=== PATIENT | female | born 1950 | race Caucasian/White ===

== ENCOUNTER 2016-12-04 05:41 | Inpatient (IN) | payer OTHER ==
[2016-12-04] MEDS ORDERED: NS 1,000 ML IV ONE (06:12)
[2016-12-04] MEDS ORDERED: ONDANSETRON 4 MG/2 ML VIAL IVP ONE (06:12)
[2016-12-04] MEDS ORDERED: HYDROmorphONE/DILAUDID 1 MG/ML SYR ONE (06:14)
[2016-12-04] MEDS ORDERED: HYDROmorphONE/DILAUDID 1 MG/ML SYR IVP ONE (06:17)
--- NOTE | 2016-12-04 06:17 | EDPHY ---
H & P Stated Complaint: abd pain Time Seen by Provider: 12/04/16 06:14 HPI/ROS: Chief Complaint: Abdominal pain HPI: 66-year-old woman began having abdominal pain last night after eating dinner. Has had a small episode of diarrhea and vomited once. Pain is in her mid abdomen, it is constant at a 7/10. It is not cramping. There is no aggravating or alleviating factors. She does not have a history of the same. Did have some chills. No urinary frequency urgency. No chest pain or shortness of breath. Has a history of a cholecystectomy and a tubal ligation in the past. ROS: 10 point Review of Systems is negative except as noted in the HPI. PMH: Hyperlipidemia, cholecystectomy, tubal ligation Medications: Statin allergies: No known drug allergies Social History: No smoking, occasional alcohol, no recreational drug use Family History: non-contributory Physical Exam: Gen: Awake, Alert, No Distress HEENT: Nose: no rhinorrhea Eyes: PERRLA, EOMI Mouth: Moist mucosa Neck: Supple, no JVD Chest: nontender, lungs clear to auscultation Heart: S1, S2 normal, no murmur Abd: Soft, bilateral lower abdominal tenderness with guarding Back: no CVA tenderness, no midline tenderness Ext: no edema, non-tender Skin: no rash Neuro: CN II-XII intact, Sensation grossly intact, Strength 5/5 in bilateral upper and lower extremities - Personal History Current Tetanus/Diphtheria Vaccine: Yes Current Tetanus Diphtheria and Acellular Pertussis (TDAP): Yes - Medical/Surgical History Hx Asthma: No Hx Chronic Respiratory Disease: No Hx Diabetes: No Hx Cardiac Disease: No Hx Renal Disease: No Hx Cirrhosis: No Hx Alcoholism: No Hx HIV/AIDS: No Hx Splenectomy or Spleen Trauma: No Other PMH: Cholecystectomy, tubaligation, - Social History Smoking Status: Never smoked Constitutional: Initial Vital Signs Temperature (C) 36.8 C 12/04/16 05:48 Heart Rate 124 H 12/04/16 05:48 Respiratory Rate 30 H 12/04/16 05:48 Blood Pressure 154/80 H 12/04/16 05:48 O2 Sat (%) 97 12/04/16 05:48 O2 Delivery Mode Room Air Allergies/Adverse Reactions: No Known Allergies Allergy (Unverified 12/04/16 05:47) Home Medications: Medication Instructions Recorded Atorvastatin Calcium [Lipitor 20 20 mg PO HS 12/04/16 mg (*)] Medical Decision Making - Diagnostics Imaging Results: CT scan abdomen pelvis shows a mechanical small-bowel obstruction with a transition point in the upper pelvis interpreted by Dr. De La Cruz. Imaging: Discussed imaging studies w/ call center representative Radiologist ED Course/Re-evaluation: CT scan shows small bowel obstruction. Dr. Cano has discussed with Dr. Michael Lyons, general surgery. He will admit to his service for further care. - Data Points Laboratory Results: Laboratory Results 12/04/16 06:10 12/04/16 06:10 Medications Given: Discontinued Medications Hydromorphone HCl (Dilaudid) 0.5 mg IVP EDNOW ONE Stop: 12/04/16 06:18 Last Admin: 12/04/16 06:24 Dose: 0.5 mg Sodium Chloride (Ns) 1,000 mls @ 0 mls/hr IV ONCE ONE PRN Reason: Wide Open Stop: 12/04/16 06:13 Last Admin: 12/04/16 06:13 Dose: 1,000 mls Ondansetron HCl (Zofran) 4 mg IVP EDNOW ONE Stop: 12/04/16 06:13 Last Admin: 12/04/16 06:13 Dose: 4 mg Departure - Departure Disposition: [facility] Inpatient Acute Clinical Impression: SBO (small bowel obstruction) Condition: Good
[2016-12-04] MEDS ORDERED: IOPAMIDOL (ISOVUE-300) 100 ML BTL ONE (06:23)
[2016-12-04 06:25] LABS: % IMMATURE GRANULYOCYTES 0.3 % (0.0-1.1); ABSOLUTE IMMATURE GRANULOCYTES 0.03 10^3/uL (0.00-0.10); ADD DIFF? NO; ADD MORPH? NO; ADD SCAN? NO; ATYPICAL LYMPHOCYTE FLAG 20 (0-99); FRAGMENT RBC FLAG 0 (0-99); HEMATOCRIT 38.5 % (38.0-47.0); HEMOGLOBIN 12.6 g/dL (12.6-16.3); LEFT SHIFT FLG 0 (0-99); LIPEMIA HEMOLYSIS FLAG 80 (0-99); MEAN CELL HEMOGLOBIN 28.1 pg (27.9-34.1); MEAN CELL HEMOGLOBIN CONCENTR. 32.7 g/dL (32.4-36.7); MEAN CELL VOLUME 85.9 fL (81.5-99.8); MEAN PLATELET VOLUME 11.3 fL (8.7-11.7); PLATELET CLUMPS FLAG 0 (0-99); PLATELET COUNT 328 10^3/uL (150-400); RED BLOOD CELL COUNT 4.48 10^6/uL (4.18-5.33); RED CELL DISTRIBUTION WIDTH 13.7 % (11.5-15.2)
[2016-12-04 06:51] LABS: ALANINE AMINOTRANSFERASE 35 IU/L (9-52); ALBUMIN 4.2 g/dL (3.5-5.0); ALKALINE PHOSPHATASE 53 IU/L (38-126); ANION GAP 13 mEq/L (8-16); ASPARTATE AMINOTRANSFERASE 24 IU/L (14-46); BILIRUBIN,TOTAL 0.8 mg/dL (0.1-1.4); BILIRUBIN-CONJUGATED 0.4 mg/dL (0.0-0.5); BILIRUBIN-UNCONJUGATED 0.4 mg/dL (0.0-1.1); CALCIUM 9.7 mg/dL (8.5-10.4); CARBON DIOXIDE 22 mEq/l (22-31); CHLORIDE 105 mEq/L (97-110); CREATININE 0.9 mg/dL (0.6-1.0); GLOMERULAR FILTRATION RATE > 60; GLUCOSE 134 mg/dL (70-100); POTASSIUM 4.5 mEq/L (3.5-5.2); SODIUM 140 mEq/L (134-144); TOTAL PROTEIN 7.3 g/dL (6.3-8.2)
[2016-12-04 07:59] LABS: COLOR PALE YELLOW; LEUKOCYTE ESTERASE,URINE 1+ (NEGATIVE); NITRITE,URINE NEGATIVE (NEGATIVE)
--- NOTE | 2016-12-04 10:09 | SOAPPROG ---
SOAP Progress Note Assessment/Plan: Assessment: 66 female with sbo for unclear reasons/ phx lap simran and lap tubal emesis x1/ no flatus/ diarhea last pm/ comfortable abd soft, nontender, afebrile Plan:will follow 12/04/16 10:07 Objective: Vital Signs Temp Pulse Resp BP Pulse Ox 36.8 C 75 18 156/89 H 92 12/04/16 09:13 12/04/16 09:13 12/04/16 09:13 12/04/16 09:13 12/04/16 09:13 12/03/16 12/04/16 12/05/16 05:59 05:59 05:59 Intake Total 1000 Balance 1000 ICD10 Worksheet Patient Problems: Problems Problem Status Onset SBO (small bowel obstruction) Acute - ICD10 Problem Qualifiers (1) SBO (small bowel obstruction)
[2016-12-04] MEDS: HYDROmorphONE/DILAUDID 1 MG/ML SYR IVP PRN ×3 (12:21→20:40)
[2016-12-04] MEDS: ONDANSETRON 4 MG/2 ML VIAL IVP PRN ×2 (12:29→20:45)
[2016-12-04] MEDS: D5W 1/2 NS W/ 20 KCl/L 1,000 ML IV SCH ×2 (12:37→20:45)
--- NOTE | 2016-12-04 16:34 | GHP ---
[f rep st] PREOP HISTORY AND PHYSICAL DATE OF ADMISSION: 12/04/2016 HISTORY OF PRESENT ILLNESS: 66-year-old female, who came to the ER today complaining of abdominal c ramps and emesis after eating last night. CT scan suggested a small bowel obstruction and she was a dmitted at that time. She has had no further emesis. Describes her pain as constant in the mid abd omen. She had 1 loose stool last night and she is having no flatus today. Denies any urinary sympt oms. Has history of a laparoscopic cholecystectomy and a laparoscopic tubal ligation in the past. PAST HISTORY: Includes cholecystectomy, tubal ligation. MEDICATIONS: Lipitor. ALLERGIES: None. REVIEW OF SYSTEMS: Reveals negative findings on a complete 10-point review. Specifically, no diabe roni, pancreatitis, or coronary disease. SOCIAL HISTORY: She does not smoke. FAMILY HISTORY: Noncontributory. PHYSICAL EXAMINATION: GENERAL: Reveals an alert, cooperative, 66-year-old female, in no acute dist ress. HEAD AND NECK: Reveals no icterus or adenopathy. No oral lesions. CHEST: Clear and symmet marina. CARDIAC: Regular rhythm. ABDOMEN: Soft, slightly distended. There is minimal tenderness. There are decreased bowel sounds. There are no obvious hernias. EXTREMITIES: Benign with full pul ses. Full range of motion. NEUROLOGIC: Physiologic. IMPRESSION: Possible small bowel obstruction of unclear etiology. She has no major laparotomy surg eries to create adhesions and no obvious hernias. PLAN: Admit for observation. NG tube if further emesis. Followup abdominal x-rays. Surgery if no t improving. Risks and options were fully discussed with the patient, and she understands and reque sts we proceed. She would like to avoid surgery if possible. /[id number]/MODL
--- NOTE | 2016-12-04 18:14 | GHP ---
[f rep st] HISTORY AND PHYSICAL DATE OF ADMISSION: 12/04/2016 HISTORY OF PRESENT ILLNESS: The patient is a 66-year-old female with a history of laparoscopic chol ecystectomy and tubal ligation who began feeling crampy, abdominal pain after eating dinner last nig ht. Since then, she had an episode of diarrhea and has vomited once. She is not currently passing gas. Since being in the emergency department she had a CT scan of the abdomen and pelvis, which alejandra wed mechanical small bowel obstruction with a transition point in the upper pelvis. She was evaluat ed by Dr. Lyons and has been admitted for observation. PAST MEDICAL HISTORY: Hyperlipidemia. Patient denies high blood pressure, cardiac problems, pulmon sherman problems such as COPD or asthma. No diabetes. No major medical issues, hospitalizations, or tr aumas. PAST SURGICAL HISTORY: Cholecystectomy, tubal ligation. MEDICATIONS: A statin drug. ALLERGIES: No known drug allergies. SOCIAL HISTORY: Patient is . She is a nonsmoker and occasionally drinks alcohol. REVIEW OF SYSTEMS: Negative aside from noted in the HPI. PHYSICAL EXAMINATION: VITAL SIGNS: Temperature 36.9, oxygenation 92% on room air. Respiratory rat e 18, heart rate 87, blood pressure 140/74. GENERAL: A well-developed, well-nourished, well-groome d, 66-year-old female, alert and oriented x3 and in no acute distress. HEENT: Normocephalic, atrau matic. No scleral icterus. Mucous membranes moist. NECK: Supple. CHEST: Clear to auscultation bilaterally without wheezes. CARDIAC: Regular rate and rhythm without murmurs. ABDOMEN: Soft. M ild mid abdomen tenderness. No bowel sounds. EXTREMITIES: Warm, dry without edema. IMPRESSION: This is a 66-year-old female with a prior abdominal surgical history now with a likely small bowel obstruction. PLAN: To admit the patient for observation. She will be made n.p.o. and supported with IV fluids. Will also support her with antiemetics and pain medicines as needed. We will plan on getting abdom inal films in the morning. As she is currently comfortable without complaints of nausea or ongoing vomiting, we will hold off on placing an NG tube. The patient was seen and examined with Dr. Lyons. /[id number]/MODL
[2016-12-04] MEDS ORDERED: NALOXONE HCL 0.4 MG/ML INJ IVP PRN (21:15)
--- NOTE | 2016-12-04 21:52 | SOAPPROG ---
SOAP Progress Note Assessment/Plan: Assessment: 66 female with sbo for unclear reasons/ phx lap simran and lap tubal emesis x1/ no flatus/ diarhea last pm/ comfortable abd soft, nontender, afebrile Plan:will follow 12/04/16 10:07 12/04/16 21:51 still with pain/ 2-way still shows sbo/ may need ng Objective: Vital Signs Temp Pulse Resp BP Pulse Ox 36.6 C 78 18 142/82 H 97 12/04/16 15:09 12/04/16 15:09 12/04/16 15:09 12/04/16 15:09 12/04/16 15:09 12/03/16 12/04/16 12/05/16 05:59 05:59 05:59 Intake Total 1696 Balance 1696 ICD10 Worksheet Patient Problems: Problems Problem Status Onset SBO (small bowel obstruction) Acute - ICD10 Problem Qualifiers (1) SBO (small bowel obstruction)
[2016-12-04] MEDS: HYDROmorphONE/DILAUDID 6 MG/30 ML PCA IV PRN (22:15)
[2016-12-05] MEDS: ONDANSETRON 4 MG/2 ML VIAL IVP PRN ×2 (00:14→05:21)
[2016-12-05 05:34] LABS: % IMMATURE GRANULYOCYTES 0.5 % (0.0-1.1); ABSOLUTE IMMATURE GRANULOCYTES 0.04 10^3/uL (0.00-0.10); ADD DIFF? NO; ADD MORPH? NO; ADD SCAN? NO; ATYPICAL LYMPHOCYTE FLAG 0 (0-99); FRAGMENT RBC FLAG 0 (0-99); HEMATOCRIT 37.7 % (38.0-47.0); HEMOGLOBIN 11.9 g/dL (12.6-16.3); LEFT SHIFT FLG 10 (0-99); LIPEMIA HEMOLYSIS FLAG 80 (0-99); MEAN CELL HEMOGLOBIN 27.2 pg (27.9-34.1); MEAN CELL HEMOGLOBIN CONCENTR. 31.6 g/dL (32.4-36.7); MEAN CELL VOLUME 86.3 fL (81.5-99.8); MEAN PLATELET VOLUME 10.9 fL (8.7-11.7); PLATELET CLUMPS FLAG 20 (0-99); PLATELET COUNT 321 10^3/uL (150-400); RED BLOOD CELL COUNT 4.37 10^6/uL (4.18-5.33); RED CELL DISTRIBUTION WIDTH 13.9 % (11.5-15.2)
[2016-12-05 05:45] LABS: AMYLASE 31 IU/L (30-110)
[2016-12-05] MEDS: D5W 1/2 NS W/ 20 KCl/L 1,000 ML IV SCH (12:39)
--- NOTE | 2016-12-05 13:59 | SOAPPROG ---
BETH Progress Note Assessment/Plan: Assessment: 66 female with sbo for unclear reasons/ phx lap simran and lap tubal emesis x1/ no flatus/ diarhea last pm/ comfortable abd soft, nontender, afebrile Plan:will follow 12/04/16 10:07 12/04/16 21:51 still with pain/ 2-way still shows sbo/ may need ng 12/05/16 13:57 MUCH WORSE TODAY WITH INCREASING SB DISTENTION/-FLATUS/ STILL NEEDING PAIN MEDS / WILL NEED SURGERY Objective: Vital Signs Temp Pulse Resp BP Pulse Ox 36.7 C 75 14 156/87 H 98 12/05/16 12:00 12/05/16 12:00 12/05/16 12:00 12/05/16 12:00 12/05/16 12:00 Laboratory Results 12/05/16 05:04 12/04/16 12/05/16 12/06/16 05:59 05:59 05:59 Intake Total 1696 Output Total 1300 Balance 1696 -1300 ICD10 Worksheet Patient Problems: Problems Problem Status Onset SBO (small bowel obstruction) Acute - ICD10 Problem Qualifiers (1) SBO (small bowel obstruction)
[2016-12-05] MEDS ORDERED: BUPIVACAINE 0.5% 30 ML SDV ONE (16:51)
[2016-12-05] MEDS ORDERED: ceFAZolin 1 GM/5 ML SYR ONE (16:51)
[2016-12-05] MEDS ORDERED: HEPARIN 1000 UNIT/1 ML MDV ONE (16:52)
[2016-12-05] MEDS ORDERED: THROMBIN(HUM PLAS)/FIBRINOG/CA 5 ML VIAL TP ONE (17:02)
[2016-12-05] MEDS ORDERED: PROPOFOL/EMULSION 500 MG/50 ML BOTTLE IV ONE (21:40)
[2016-12-05] MEDS ORDERED: fentaNYL 100 MCG/2 ML INJ ONE ×3 (21:40→23:01)
[2016-12-06] MEDS ORDERED: fentaNYL 100 MCG/2 ML INJ ONE (00:04)
--- NOTE | 2016-12-06 00:05 | POSTOPPROG ---
Post Op Note Date of Operation: 12/06/16 Surgeon: Michael Lyons Anesthesiologist: KOBI Anesthesia: GET(General Endotracheal) Pre-op Diagnosis: SMALL-BOWEL OBSTRUCTION Post-op Diagnosis: SAME Indication: PERSISTENT SYMPTOMS Procedure: LAPAROSCOPY WITH LYSIS OF ADHESIONS, MINI LAPAROTOMY WITH LYSIS OF ADHESIO Findings: 1 AREA OF BOWEL TRAPPED IN THE RETROPERITONEUM FROM SCAR TISSUE/ NO OTHER Inf/Abcess present in the surg proc area at time of surgery?: No Depth: Organ Space EBL: Minimal Complications: NONE
[2016-12-06] MEDS: ERTAPENEM 1 GM in NS 100 ML IV SCH ×2 (00:57→08:34)
[2016-12-06] MEDS: OXYCODONE/APAP 5/325 TAB PO PRN ×2 (00:57→20:58)
--- NOTE | 2016-12-06 10:40 | SOAPPROG ---
SOAP Progress Note Assessment/Plan: Assessment: 66yo s/p mini laparotomy lysis of adhesions, POD 1 Pain well controlled, no flatus, has not ambulated yet. PE In bed, NG in place Chest CTA B/L Abdomen bandages dry, soft, non distended, no bowel sounds Plan: may consider NG trial off suction later today, if not in AM encouraged ambulation await further bowel function 12/06/16 10:34 12/06/16 10:40 Objective: Vital Signs Temp Pulse Resp BP Pulse Ox 36.9 C 97 18 152/90 H 96 12/06/16 07:00 12/06/16 07:00 12/06/16 07:00 12/06/16 07:00 12/06/16 07:00 Laboratory Results 12/05/16 05:04 12/05/16 12/06/16 12/07/16 05:59 05:59 05:59 Intake Total 1696 3289 1118 Output Total 2370 Balance 3178 047 1379 ICD10 Worksheet Patient Problems: Problems Problem Status Onset SBO (small bowel obstruction) Acute
[2016-12-06] MEDS: D5W 1/2 NS W/ 20 KCl/L 1,000 ML IV SCH (15:06)
[2016-12-06] MEDS: HYDROmorphONE/DILAUDID 6 MG/30 ML PCA IV PRN (16:22)
[2016-12-07] MEDS: OXYCODONE/APAP 5/325 TAB PO PRN ×2 (02:00→21:36)
[2016-12-07] MEDS: ERTAPENEM 1 GM in NS 100 ML IV SCH (09:04)
--- NOTE | 2016-12-07 09:10 | SOAPPROG ---
BETH Progress Note Assessment/Plan: Assessment: 66 female with sbo for unclear reasons/ phx lap simran and lap tubal emesis x1/ no flatus/ diarhea last pm/ comfortable abd soft, nontender, afebrile Plan:will follow 12/04/16 10:07 12/04/16 21:51 still with pain/ 2-way still shows sbo/ may need ng 12/05/16 13:57 MUCH WORSE TODAY WITH INCREASING SB DISTENTION/-FLATUS/ STILL NEEDING PAIN MEDS / WILL NEED SURGERY 12/07/16 09:09 AFEBRILE/ COMFORTABLE/ NG MINIMAL/ -FLATUS/ WOUND OK/ ABD SOFT WITH DECREASED BS/ UO OK Objective: Vital Signs Temp Pulse Resp BP Pulse Ox 36.6 C 83 18 129/75 H 99 12/07/16 08:00 12/07/16 08:00 12/07/16 08:00 12/07/16 08:00 12/07/16 08:00 Laboratory Results 12/05/16 05:04 12/06/16 12/07/16 12/08/16 05:59 05:59 05:59 Intake Total 2709 2346 Output Total 2370 2200 Balance 919 146 ICD10 Worksheet Patient Problems: Problems Problem Status Onset SBO (small bowel obstruction) Acute - ICD10 Problem Qualifiers (1) SBO (small bowel obstruction)
--- NOTE | 2016-12-07 20:50 | GOP ---
[f rep st] OPERATIVE REPORT DATE OF OPERATION: 12/06/2016 SURGEON: Michael Lyons MD AGRICULTURAL SYSTEMS SPECIALIST: None. ANESTHESIOLOGIST: Dr. Burrows. PREOPERATIVE DIAGNOSIS: Small-bowel obstruction. POSTOPERATIVE DIAGNOSIS: Small-bowel obstruction. PROCEDURE PERFORMED: 1. Laparoscopic adhesiolysis. 2. Exploratory laparotomy with closure of small enterotomy. FINDINGS: Patient was found to have a single area of adhesed bowel in the retroperitoneum in the ri [facility] [place] lower quadrant. There were quite dense adhesions in that area, and appeared to be the area of o cclusion of the bowel with the proximal bowel markedly dilated and the distal bowel definitely defla kinza. There was no evidence of tumor or stricture in that area once it was freed, and bowel contents easily passed through the area. DESCRIPTION OF PROCEDURE: Patient was taken to the operating room where she received satisfactory g eneral endotracheal anesthesia. She was placed in the supine position and prepped and draped in usu al sterile fashion. A periumbilical incision was made, a Veress needle inserted, and pneumoperitone um was established. Trocar was introduced and laparoscope introduced. Good visualization was obtai deena. Two other trocars were placed under direct vision in the lower abdomen. The bowel was examine d and run in its entirety from the ligament of Treitz to the ileocecal valve. The area of fixation was found in the right lower quadrant. This was freed up laparoscopically with the Harmonic Scalpel until the area was completely freed up. There does not appear to be any major problems, except for these chronic adhesions. It was elected to do a small mini laparotomy to feel the area and to be s ure. A periumbilical incision was made and carried through the linea alba. Hemostasis was assured. The bowel was eviscerated, and this area of the obstruction was fully examined. It was widely pat ent after freeing it up from adhesions, with no evidence of any mass or intraabdominal stricture. I ncidentally found in the proximal bowel just above the obstruction was a small perforation which may have been iatrogenic from the bowel graspers. There was no significant intraabdominal contaminatio n. This area was closed with a 3-0 Vicryl pursestring suture and then imbricated with interrupted 3 -0 Vicryl Lembert sutures. The wound was copiously irrigated. Hemostasis was assured. The bowel w as returned into the abdomen, which was then closed with a running #1 PDS suture to the linea alba. Wound was infiltrated with Marcaine. Subcu was closed with 3-0 Vicryl, and the skin with a 4-0 Mon ocryl subcuticular suture. FINDINGS: Small bowel obstruction secondary to retroperitoneal fibrous adhesions and a small perfor ation. She tolerated procedure well. She was taken to the recovery room in good condition. There were no complications. Blood loss was negligible. /[id number]/MODL
[2016-12-08] MEDS: ERTAPENEM 1 GM in NS 100 ML IV SCH ×2 (09:51→11:28)
--- NOTE | 2016-12-08 12:04 | SOAPPROG ---
SOAP Progress Note Assessment/Plan: Assessment: 66yo s/p mini laparotomy lysis of adhesions Pain well controlled, no flatus. PE In bed, NG in place Chest CTA B/L Abdomen bandages dry, soft, non distended, no bowel sounds Plan: encouraged ambulation await further bowel function seen with dr Lyons 12/06/16 10:34 12/06/16 10:40 12/08/16 12:03 Objective: Vital Signs Temp Pulse Resp BP Pulse Ox 36.4 C 86 16 141/98 H 91 L 12/08/16 08:46 12/08/16 08:46 12/08/16 08:46 12/08/16 08:46 12/08/16 08:46 Laboratory Results 12/05/16 05:04 12/07/16 12/08/16 12/09/16 05:59 05:59 05:59 Intake Total 2346 Output Total 2200 1850 Balance 146 -1850 ICD10 Worksheet Patient Problems: Problems Problem Status Onset SBO (small bowel obstruction) Acute
[2016-12-08] MEDS: D5W 1/2 NS W/ 20 KCl/L 1,000 ML IV SCH (19:46)
--- NOTE | 2016-12-09 08:33 | SOAPPROG ---
SOAP Progress Note Assessment/Plan: Assessment/Plan: - 66yo F s/p ex-lap, adhesiolysis for SBO - Pain appears appropriately controlled - DEnies any bowel function, does have some bowel sounds but minimal. NGT with 300cc/24hrs. Will attempt clamp trial this AM - OOB, ambulate. Hopefully have more robust bowel function by tomorrow. 12/09/16 08:32 Subjective: Feels about the same, denies any bowel function Objective: Vital Signs Temp Pulse Resp BP Pulse Ox 36.6 C 88 18 149/87 H 96 12/09/16 05:06 12/09/16 05:06 12/09/16 05:06 12/09/16 05:06 12/09/16 05:06 Laboratory Results 12/05/16 05:04 12/08/16 12/09/16 12/10/16 05:59 05:59 05:59 Intake Total 650 Output Total 1850 2100 Balance -1850 -1450 ICD10 Worksheet Patient Problems: Problems Problem Status Onset SBO (small bowel obstruction) Acute
[2016-12-09] MEDS: ERTAPENEM 1 GM in NS 100 ML IV SCH (09:10)
[2016-12-09] MEDS: D5W 1/2 NS W/ 20 KCl/L 1,000 ML IV SCH (15:55)
[2016-12-10] MEDS: OXYCODONE/APAP 5/325 TAB PO PRN (01:16)
[2016-12-10] MEDS ORDERED: ONDANSETRON DISINTEGRATING 4 MG TAB ONE (04:34)
[2016-12-10] MEDS ORDERED: ONDANSETRON DISINTEGRATING 4 MG TAB PO PRN (07:20)
[2016-12-10] MEDS: ERTAPENEM 1 GM in NS 100 ML IV SCH (10:30)
--- NOTE | 2016-12-11 09:54 | SOAPPROG ---
BETH Progress Note Assessment/Plan: Assessment: 66 female with sbo for unclear reasons/ phx lap simran and lap tubal emesis x1/ no flatus/ diarhea last pm/ comfortable abd soft, nontender, afebrile Plan:will follow 12/04/16 10:07 12/04/16 21:51 still with pain/ 2-way still shows sbo/ may need ng 12/05/16 13:57 MUCH WORSE TODAY WITH INCREASING SB DISTENTION/-FLATUS/ STILL NEEDING PAIN MEDS / WILL NEED SURGERY 12/07/16 09:09 AFEBRILE/ COMFORTABLE/ NG MINIMAL/ -FLATUS/ WOUND OK/ ABD SOFT WITH DECREASED BS/ UO OK 12/11/16 09:53 abd soft/ wound ok/ afebrile/ +flatus and bm/ advance diet/ home soon Objective: Vital Signs Temp Pulse Resp BP Pulse Ox 36.3 C 111 H 12 152/89 H 90 L 12/11/16 08:25 12/11/16 08:25 12/11/16 08:25 12/11/16 08:25 12/11/16 08:25 Laboratory Results 12/05/16 05:04 12/10/16 12/11/16 12/12/16 05:59 05:59 05:59 Intake Total 840 Output Total 800 900 Balance -800 -60 ICD10 Worksheet Patient Problems: Problems Problem Status Onset SBO (small bowel obstruction) Acute - ICD10 Problem Qualifiers (1) SBO (small bowel obstruction)
[2016-12-11] MEDS: OXYCODONE/APAP 5/325 TAB PO PRN (21:08)
[2016-12-12 09:07] VITALS: BP 113/79; PULSE 104; RESP 18; TEMP 98.1; O2SAT 93
== END 2016-12-12 10:29 | disposition home or self-care (01) | DRG 329 ==
LOC: F3E 09:10
PROVIDERS: ADMIT Surgery; ATTEND Surgery
PROC: 0DNW4ZZ Release Peritoneum, Percutaneous Endoscopic Approach (ICD-10-PCS; principal; 2016-12-05 18:00)
PROC: 0DNF0ZZ Release Right Large Intestine, Open Approach (ICD-10-PCS; principal; 2016-12-05 18:00)
PROC: 0DQE0ZZ Repair Large Intestine, Open Approach (ICD-10-PCS; principal; 2016-12-05 18:00)
PROC: 0D9670Z Drainage of Stomach with Drainage Device, Via Natural or Artificial Opening (ICD-10-PCS; 2016-12-05 18:00)
DX: K56.5 Intestinal adhesions [bands] with obstruction (postinfection) (principal); K63.1 Perforation of intestine (nontraumatic); E78.5 Hyperlipidemia, unspecified
CPT/HCPCS: 96374; J1170; J1335; J2405; J2704; J3010; Q9967